=== PATIENT | female | born 1950 | race Two or more races ===

== ENCOUNTER 2017-04-18 10:30 | Outpatient (CLI) | payer OTHER ==
[~2017-04-18 10:30] MED LIST: KETO10TA2 PO; [UNRECOGNIZED DRUG - OTHER]
== END 2017-04-18 10:35 | disposition home or self-care (01) ==
LOC: LAB 10:30
DX: N95.1 Menopausal and female climacteric states (principal); R89.1 Abnormal level of hormones in specimens from other organs, systems and tissues; E03.8 Other specified hypothyroidism; D64.89 Other specified anemias; E78.4 Other hyperlipidemia; M81.6 Localized osteoporosis [Lequesne]; M83.3 Adult osteomalacia due to malnutrition

== ENCOUNTER 2017-04-19 13:12 | Outpatient (CLI) | payer OTHER | END 2017-04-19 13:30 | disposition home or self-care (01) | LOC: NUCLEAR 13:12 | DX: M81.0 Age-related osteoporosis without current pathological fracture (principal) ==

== ENCOUNTER → 2017-05-21 | Outpatient (CLI) | payer OTHER | END | disposition home or self-care (01) | LOC: PPH VACUNA 15:14 | DX: Z23 Encounter for immunization (principal) | CPT/HCPCS: 90674; G0008 ==

== ENCOUNTER 2017-06-25 12:37 | Outpatient (CLI) | payer OTHER | END 2017-06-25 12:47 | disposition home or self-care (01) | LOC: LAB 12:37 | DX: N95.0 Postmenopausal bleeding (principal) ==

== ENCOUNTER 2017-11-02 09:14 | Outpatient (CLI) | payer OTHER | END 2017-11-02 09:26 | disposition home or self-care (01) | LOC: LAB 09:14 | DX: I10 Essential (primary) hypertension (principal); Z72.0 Tobacco use; Z85.29 Personal history of malignant neoplasm of other respiratory and intrathoracic organs ==

== ENCOUNTER 2017-11-02 09:44 | Outpatient (CLI) | payer OTHER | END 2017-11-02 09:50 | disposition home or self-care (01) | LOC: MAMO-SONO 09:44 | DX: Z12.31 Encounter for screening mammogram for malignant neoplasm of breast (principal); Z87.898 Personal history of other specified conditions; N60.11 Diffuse cystic mastopathy of right breast; N60.12 Diffuse cystic mastopathy of left breast ==

== ENCOUNTER 2017-12-28 10:10 | Outpatient (CLI) | payer OTHER | END 2017-12-28 10:14 | disposition home or self-care (01) | LOC: SONOGRAMA 10:10 | DX: K76.0 Fatty (change of) liver, not elsewhere classified (principal) ==

== ENCOUNTER 2018-02-22 11:37 | Outpatient (CLI) | payer OTHER | END 2018-02-22 12:24 | disposition home or self-care (01) | LOC: TOM 11:37 | DX: G50.1 Atypical facial pain (principal); R51 Headache; J32.4 Chronic pansinusitis ==

== ENCOUNTER 2019-02-26 10:01 | Outpatient (CLI) | payer OTHER | END 2019-02-26 10:08 | disposition home or self-care (01) | LOC: MAMO-SONO 10:01 | DX: Z12.31 Encounter for screening mammogram for malignant neoplasm of breast (principal); Z87.898 Personal history of other specified conditions; N60.11 Diffuse cystic mastopathy of right breast; N60.12 Diffuse cystic mastopathy of left breast ==

== ENCOUNTER 2019-11-14 08:39 | Outpatient (CLI) | payer OTHER | END 2019-11-14 09:23 | disposition home or self-care (01) | LOC: MRI 08:39 | PROVIDERS: ATTEND Psychiatry & Neurology Clinical Neurophysiology | DX: G50.1 Atypical facial pain (principal) | CPT/HCPCS: 70551 ==

== ENCOUNTER 2020-04-12 08:52 | Outpatient (CLI) | payer OTHER | END 2020-04-12 09:04 | disposition home or self-care (01) | LOC: RAD 08:52 | PROVIDERS: ATTEND Internal Medicine Cardiovascular Disease | DX: R10.84 Generalized abdominal pain (principal); R07.89 Other chest pain ==

== ENCOUNTER 2020-05-17 08:52 | Outpatient (CLI) | payer OTHER | END 2020-05-17 08:58 | disposition home or self-care (01) | LOC: TOM 08:52 | PROVIDERS: ATTEND Urology | DX: N28.1 Cyst of kidney, acquired (principal); Q44.6 Cystic disease of liver; K57.90 Diverticulosis of intestine, part unspecified, without perforation or abscess without bleeding | CPT/HCPCS: 74178; Q9965 ==

== ENCOUNTER 2020-05-18 10:22 | Outpatient (CLI) | payer OTHER | END 2020-05-18 12:51 | disposition home or self-care (01) | LOC: NUCLEAR 10:22 | PROVIDERS: ATTEND Internal Medicine Rheumatology | DX: M81.0 Age-related osteoporosis without current pathological fracture (principal) ==

== ENCOUNTER → 2021-02-08 | Emergency (ER) | payer OTHER ==
[~2021-02-08] VITALS: Ht 165.1 cm; Wt 65.8 kg
[~2021-02-08] MED LIST changes: +PROLIA60 MG/1 ML
== END | disposition left against medical advice (07) ==
LOC: ER 13:09
DX: Z53.20 Procedure and treatment not carried out because of patient's decision for unspecified reasons (principal)

== ENCOUNTER → 2021-03-31 | Outpatient (CLI) | payer OTHER | END | disposition home or self-care (01) | LOC: NUCLEAR 04-15 13:00 → SONOGRAMA 07:42 | PROVIDERS: ATTEND Urology | DX: R10.9 Unspecified abdominal pain (principal); N94.89 Other specified conditions associated with female genital organs and menstrual cycle ==

== ENCOUNTER → 2021-04-09 | Emergency (ER) | payer OTHER ==
[~2021-04-09] VITALS: Ht 165.1 cm; Wt 65.8 kg
== END | disposition home or self-care (01) ==
LOC: ER 16:53
DX: B34.9 Viral infection, unspecified (principal); Z20.822 Contact with and (suspected) exposure to COVID-19

== ENCOUNTER 2021-04-29 11:52 | Outpatient (CLI) | payer OTHER | END 2021-04-29 12:00 | disposition home or self-care (01) | LOC: RAD 11:52 | PROVIDERS: ATTEND Physical Medicine & Rehabilitation | DX: M25.511 Pain in right shoulder (principal); M54.59 Other low back pain; M54.6 Pain in thoracic spine ==

== ENCOUNTER 2021-05-30 12:24 | Outpatient (CLI) | payer OTHER | END 2021-05-30 12:25 | disposition home or self-care (01) | LOC: RAD 12:24 | PROVIDERS: ATTEND Physical Medicine & Rehabilitation | DX: M54.6 Pain in thoracic spine (principal); M41.34 Thoracogenic scoliosis, thoracic region ==

== ENCOUNTER 2022-07-24 08:10 | Outpatient (CLI) | payer OTHER | END 2022-07-24 08:24 | disposition home or self-care (01) | LOC: SONOGRAMA 08:10 | DX: R10.9 Unspecified abdominal pain (principal) ==

== ENCOUNTER 2023-01-17 09:21 | Outpatient (CLI) | payer OTHER | END 2023-01-17 09:26 | disposition home or self-care (01) | LOC: MAMO-SONO 09:21 | DX: N60.11 Diffuse cystic mastopathy of right breast (principal); N60.12 Diffuse cystic mastopathy of left breast; N64.4 Mastodynia; Z12.31 Encounter for screening mammogram for malignant neoplasm of breast ==

== ENCOUNTER 2023-01-30 12:25 | Outpatient (CLI) | payer OTHER | END 2023-01-30 12:26 | disposition home or self-care (01) | LOC: NUCLEAR 12:25 | DX: M81.0 Age-related osteoporosis without current pathological fracture (principal) ==

== ENCOUNTER 2023-10-30 13:44 | Outpatient (CLI) | payer OTHER | END 2023-10-30 13:53 | disposition home or self-care (01) | LOC: SONOGRAMA 13:44 | PROVIDERS: ATTEND Urology | DX: N28.1 Cyst of kidney, acquired (principal) ==

== ENCOUNTER 2024-02-13 09:50 | Outpatient (CLI) | payer OTHER | END 2024-02-13 09:59 | disposition home or self-care (01) | LOC: MAMO-SONO 09:50 | PROVIDERS: ATTEND Family Medicine | DX: Z12.31 Encounter for screening mammogram for malignant neoplasm of breast (principal); R07.81 Pleurodynia ==

== ENCOUNTER 2024-09-24 09:39 | Outpatient (CLI) | payer OTHER | END 2024-09-24 09:41 | disposition home or self-care (01) | LOC: SONOGRAMA 09:39 | PROVIDERS: ATTEND Family Medicine | DX: M17.12 Unilateral primary osteoarthritis, left knee (principal); M25.562 Pain in left knee; R10.9 Unspecified abdominal pain ==

== ENCOUNTER 2025-01-23 11:32 | Outpatient (CLI) | payer OTHER | END 2025-01-23 11:42 | disposition home or self-care (01) | LOC: RAD 11:32 | PROVIDERS: ATTEND Internal Medicine Pulmonary Disease | DX: R05.3 Chronic cough (principal) ==